=== PATIENT | male | born 1970 | race Caucasian/White ===

== ENCOUNTER 2017-07-11 17:47 | Emergency (ER) | payer SELFPAY ==
[2017-07-11 17:48] VITALS: BP 150/102; PULSE 71; RESP 16; TEMP 36.5; O2SAT 97; BMI 30.8
--- NOTE | 2017-07-11 18:08 | ED.VISSUMM ---
- ER Visit Summary Date of Service: 07/11/17 Chief Complaint: [] Laceration left leg History of Present Illness: The patient is a 47 M [] complaining of laceration to the left tibia after partially falling through his roof. Patient reports the injury occurred yesterday. He is here at the urging of his . 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 He reports cleaning the wound and applying triple antibiotic ointment. The wound is not actively bleeding upon arrival to the room. Patient reports his tetanus status is not up-to-date. Patient denies any significant past medical history. Physical Examination: [] Afebrile, vital signs stable. Elevation of the left lower extremity reveals a 5 cm full-thickness laceration without signs of cellulitis or infection. There is good hemostasis. The wound is gaped open approximately 1-1/2 cm. It appears to be trying to heal by secondary intention. Patient is neurovascularly intact distally. There is no significant bony tenderness on palpation. Test Results: [] None. Emergency Department Course and Treatment: [] Patient had the area cleaned with Shur-Clens and saline with a surgical scrub brush after the area was anesthetized locally with LET. The wound will not be sutured closed as it is over 12 hours old and went through a dirty surface. Patient will be started on Bactrim and Keflex as an outpatient with first doses provided here in the emergency department. Patient was instructed to have his wound evaluated in 72 hours. Treatment Plan: [] Outpatient antibiotic treatment and close PCP follow-up. Disposition: [] Discharge, stable. Impression: [] Tetanus update Laceration wound check This note was generated with [employer] dictation software. It may contain incorrect words, spelling, and punctuation that were not noted in review of the chart prior to signing ED Disposition - Plan for ED Patient: Chief Complaint: Laceration
--- NOTE | 2017-07-11 18:13 | ED.DCSUM_ITS ---
- ER Visit Summary Date of Service: 07/11/17 Chief Complaint: [] Laceration left leg History of Present Illness: The patient is a 47 M [] complaining of laceration to the left tibia after partially falling through his roof. Patient reports the injury occurred yesterday. He is here at the urging of his . 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 He reports cleaning the wound and applying triple antibiotic ointment. The wound is not actively bleeding upon arrival to the room. Patient reports his tetanus status is not up-to-date. Patient denies any significant past medical history. Physical Examination: [] Afebrile, vital signs stable. Elevation of the left lower extremity reveals a 5 cm full-thickness laceration without signs of cellulitis or infection. There is good hemostasis. The wound is gaped open approximately 1-1/2 cm. It appears to be trying to heal by secondary intention. Patient is neurovascularly intact distally. There is no significant bony tenderness on palpation. Test Results: [] None. Emergency Department Course and Treatment: [] Patient had the area cleaned with Shur-Clens and saline with a surgical scrub brush after the area was anesthetized locally with LET. The wound will not be sutured closed as it is over 12 hours old and went through a dirty surface. Patient will be started on Bactrim and Keflex as an outpatient with first doses provided here in the emergency department. Patient was instructed to have his wound evaluated in 72 hours. Treatment Plan: [] Outpatient antibiotic treatment and close PCP follow-up. Disposition: [] Discharge, stable. Impression: [] Tetanus update Laceration wound check This note was generated with [employer] dictation software. It may contain incorrect words, spelling, and punctuation that were not noted in review of the chart prior to signing ED Disposition - Plan for ED Patient: Chief Complaint: Laceration
[2017-07-11] MEDS: Lidocaine/Epi/Tetracaine 50 ML 1 APPLIC TOPICAL (18:14)
[2017-07-11] MEDS: Cephalexin 250 MG Capsule 500 MG PO (18:37)
[2017-07-11] MEDS: Smz/Tmp Ds Tablet 1 TABLET PO (18:37)
[2017-07-11] MEDS: Diphth,Pertuss(Acell),Tet Vac 0.5 ML Vial IM (18:37)
--- NOTE | 2017-07-11 19:16 | ED.DEP ---
ED Disposition - Plan for ED Patient: Disposition: Home or Assisted Living Chief Complaint: Laceration Instructions: ED Laceration Old Not Sutr Prescriptions: Cephalexin [Keflex] 500 mg PO Q8 #12 cap Sulfamethoxazole/Trimethoprim [Bactrim Ds Tablet] 1 ea PO BID #6 tab Referrals: Care Physician,No Primary [Primary Care Provider] -
[2017-07-11] MEDS: BACITRACIN 15 GM Tube 1 APPLIC TOPICAL (19:25)
[2017-07-11 19:26] VITALS: RESP 16
== END 2017-07-11 19:26 | disposition home or self-care (01) ==
PROVIDERS: Emergency Provider Emergency Medicine
DX: S81.812A Laceration without foreign body, left lower leg, initial encounter (principal); W13.2XXA Fall from, out of or through roof, initial encounter; Y93.9 Activity, unspecified; Y92.009 Unspecified place in unspecified non-institutional (private) residence as the place of occurrence of the external cause; Y99.9 Unspecified external cause status; Z23 Encounter for immunization
CPT/HCPCS: 90715; 99284

== ENCOUNTER 2021-06-01 16:02 | Emergency (ER) | payer OTHER, SELFPAY ==
[2021-06-01 16:04] VITALS: BP 138/102; PULSE 111; RESP 16; TEMP 36.5; O2SAT 95; BMI 34.1
--- NOTE | 2021-06-01 16:23 | EKG12_ITS ---
Test Reason : Blood Pressure : / mmHG Vent. Rate : 099 BPM Atrial Rate : 099 BPM P-R Int : 132 ms QRS Dur : 094 ms QT Int : 356 ms P-R-T Axes : 045 033 035 degrees QTc Int : 456 ms Normal sinus rhythm Normal ECG Confirmed by SUKHWINDER LEARY, DAMION ([id number]), video effects editor JOAQUIN IRVING ([id number]) on 06/04/2021 11:29:04 AM Referred By: CATERINA Confirmed By:DAMION PRETTY MD
--- NOTE | 2021-06-01 16:25 | EDS_ITS ---
HPI History of Present Illness Chief Complaint: Other, Pain/Inj Narrative Narrative: 51-year-old male presenting with neck and left arm pain. Patient states this started approximately 1 week ago. He states he initially rolled off the couch and felt that was the cause. He went to urgent care on Wednesday and was prescribed prednisone and muscle relaxer. He states he was unable to tolerate the prednisone and took this for 3 days only. He complains of persistent pain in his neck and left arm. Denies chest pain or shortness of breath. Denies trauma. Prior similar symptoms: No Recent Illness/Hospitalization: No [facility] Medical History (Updated 06/01/21 @ 19:[address] Stephanie Malone MD) Hypertension Home Medications hydrocodone-acetaminophen 1 tab PO Q6H PRN PRN 3 Days #10 tablet 06/01/21 [Rx Last Taken Unknown] lisinopril 10 mg PO DAILY 06/01/21 [History Last Taken Unknown] Allergy/AdvReac Type Severity Reaction Status Date / Time Penicillins [PCN] Allergy Swelling Verified 06/01/21 16:14 prednisone AdvReac Other Verified 06/01/21 16:04 Social History Smoking Status: Never smoker ROS ROS ED Constitutional Constitutional ED: Denies fever(s) Eyes Eyes: Denies change in vision ENT ENT ED: Denies rhinorrhea or sore throat Cardiovascular Cardiovascular: Denies chest pain or palpitations Respiratory/Chest Respiratory/Chest: Denies cough or dyspnea Gastrointestinal Gastrointestinal: Denies abdominal pain, nausea or vomiting Musculoskeletal Musculoskeletal: Reports neck pain and other Details: left arm pain Integumentary Denies rash Neurologic Neurologic: Denies headache(s), paresthesias or weakness EXAM Physical Exam Const Vital Signs: 06/01/21 16:04 06/01/21 16:15 Temperature 97.7 F L Temperature Source Temporal Pulse Rate 111 H Respiratory Rate 16 Respiratory Effort Normal Non-Labored Respiratory Pattern Normal Blood Pressure 138/102 H Blood Pressure Mean 114 Pulse Ox 95 Oxygen Delivery Method Room Air Positive well nourished and well developed General Appearance ED: well developed HEENT Reports normocephalic and head/scalp atraumatic Eyes PERRL and EOMs intact bilaterally Neck supple Neck Narrative: no midline tenderness General: Negative for tenderness Chest Wall inspection of chest normal Resp normal respiratory effort and clear to auscultation bilaterally Cardio regular rate and regular rhythm no CVA tenderness Extremity normal to inspection Extremity Narrative: active full range of motion. No warmth or erythema. Neuro oriented x3 and no sensory deficits noted Sensorium / Orientation: alert Motor Exam: strength 5/5 throughout Psych mental status grossly normal Skin no rashes or lesions noted MDM MDM MDM Narrative Medical decision making narrative: Patient was given Morphine, Zofran IV. Chest x-ray read by myself and radiology shows no acute process. Cervical spine x- ray shows mild degenerative disc disease at C5-6 and C6-7. CBC, chemistries are unremarkable. Troponin is negative. Patient is resting comfortably on reevaluation. He is given a prescription for short course of Alpine. Advised to follow-up with orthopedics. Advised return to ED for worsening complaints. Lab Data Attestation: I reviewed the patient's lab results. Labs: Laboratory Results - last 24 hr 06/01/21 06/01/21 16:40 16:40 WBC 7.6 RBC 5.10 Hgb 15.5 Hct 44.2 MCV 86.7 MCH 30.4 MCHC 35.1 RDW Std Deviation 38.6 RDW Coeff of Vic 12.2 Plt Count 158 MPV 10.1 Immature Gran % (Auto) 1.300 H Neut % (Auto) 63.6 Lymph % (Auto) 25.2 [place] % (Auto) 6.6 Eos % (Auto) 2.8 Baso % (Auto) 0.5 Absolute Neuts (auto) 4.8 Absolute Lymphs (auto) 1.91 Nucleated RBC % 0 Sodium 136 Potassium 4.2 Chloride 103 Carbon Dioxide 20.0 L Anion Gap 13 BUN 18 Creatinine 1.07 Estim Creat Clear Calc 86.23 Est GFR (MDRD) Af Amer 94 Est GFR (MDRD) Non-Af 78 BUN/Creatinine Ratio 16.8 Glucose 225 H Calcium 7.9 L Troponin I High Sens < 3 L Radiography Diagnostic Testing: Clinical Impression(s) from Imaging Studies Chest X-Ray 06/01/21 16:54 IMPRESSION: No radiographic evidence of acute cardiopulmonary disease. at 1905 Reported and signed by: Jcarlos Latif MD Electronically Signed: Jcarlos Latif MD at 19:03 EDT , EKG Initial EKG: Attestation: I personally reviewed and interpreted this EKG as follows: Interpretation: Sinus Rhythm and No Acute Injury Pattern Discharge Plan Triage Chief Complaint: Other, Pain/Inj ED Provider: Stephanie Malone Dx/Rx/DC Orders Clinical Impression: Neck strain Instructions: ED Neck Sprain or Strain Prescriptions: New hydrocodone-acetaminophen 5-325 mg tablet 1 tab PO Q6H PRN PRN (Reason: Pain) 3 Days Qty: 10 RF: 0 No Action lisinopril 10 mg tablet 10 mg PO DAILY RF: 0 Primary Care Provider: Sara Holcomb Referrals: Sara Holcomb MD [Primary Care Provider] - Eusebio Koenig DO [STAFF PHYSICIAN] - Disposition Disposition: Home, Self Care
[2021-06-01] MEDS: Morphine 4 MG/ML Syringe IV (16:39)
[2021-06-01] MEDS: Ondansetron 4 MG/2 ML Vial IV (16:39)
[2021-06-01 16:52] LABS: Absolute Lymphocyte Count 1.91 X10^3/uL (0.83-4.51); Absolute Neutrophil Count 4.8 X10^3/uL (2.0-7.7); Basophil# 0.04 X10^3/uL; Basophil% 0.5 % (0-1); Eosinophil# 0.21 X10^3/uL; Eosinophils% 2.8 % (0-5); Hematocrit 44.2 % (40-54); Hemoglobin 15.5 g/dL (13.0-16.5); Lymphocyte # 1.91 X10^3/ul (0.83-4.51); Lymphocyte % 25.2 % (19-41); Mean Corp Hgb Conc 35.1 g/dL (32-36); Mean Corpuscular Hgb 30.4 pg (27.0-32.0); Mean Corpuscular Volume 86.7 fL (80-94); Mean Platelet Vol. 10.1 fl (6.2-12.0); Monocyte% 6.6 % (0-10); NRBC Flagged by Analyzer 0 % (0-5); Neutrophil # 4.82 X10^3/uL (2.7-7.7); Neutrophil % 63.6 % (47-70); Platelet Count 158 K/mm3 (150-450); RBC Distribution Width CV 12.2 % (11.6-14.6); RBC Distribution Width SD 38.6 fl (35.1-43.9); White Blood Count 7.6 K/mm3 (4.4-11.0)
--- NOTE | 2021-06-01 16:54 | RAD_ITS ---
HISTORY: sob EXAMINATION/TECHNIQUE: XR Chest 1 View: 1 view COMPARISON: None FINDINGS: LINES/DEVICES: None. LUNGS: No consolidation, edema or effusion. No pneumothorax. MEDIASTINUM AND CARDIOVASCULAR STRUCTURES: Cardiac silhouette not enlarged. Central airways and mediastinal contour are unremarkable. BONES AND SOFT TISSUES: No acute bony abnormalities. RAD/Chest 1 View (Portable) IMPRESSION: No radiographic evidence of acute cardiopulmonary disease. at 1905 Reported and signed by: Jcarlos Latif MD Electronically Signed: Jcarlos Latif MD at 19:03 EDT ,
--- NOTE | 2021-06-01 16:54 | RAD_ITS ---
HISTORY: pain EXAMINATION/TECHNIQUE: XR Spine Cervical 2 or 3 Views: 3 views COMPARISON: None FINDINGS: VERTEBRAE: Preserved vertebral body height. No fracture. No spondylolisthesis. DISCS: Mild disc space loss at C5-6 and C6-7. NECK SOFT TISSUES: No prevertebral soft tissue widening. RAD/Cerv Spine 2 or 3 Views IMPRESSION: Mild degenerative disc disease at C5-6 and C6-7. at 1907 Reported and signed by: Jcarlos Latif MD Electronically Signed: Jcarlos Latif MD at 19:05 EDT ,
[2021-06-01 17:17] LABS: Anion Gap 13 (5-15); BUN 18 mg/dL (7-18); BUN/Creat Ratio 16.8 RATIO (10-20); Calcium,Total 7.9 mg/dL (8.5-10.1); Chloride 103 mmol/L (98-107); Creatinine, Serum 1.07 mg/dL (0.70-1.30); EST Glomerular Filtration Rate 78 mL/min (>60); Est Glom Filt Rate - Afr Amer 94 mL/min (>60); Estimated Creatinine Clearance 86.23 ml/min; Glucose 225 mg/dL (74-106); Potassium 4.2 mmol/L (3.5-5.1); Sodium Level 136 mmol/L (136-145); Troponin-I HS < 3 pg/mL (3.0-78.0)
[2021-06-01 19:32] VITALS: BP 131/61; PULSE 67; RESP 18; O2SAT 96
== END 2021-06-01 19:33 | disposition home or self-care (01) ==
PROVIDERS: Emergency Provider Emergency Medicine; PCP Internal Medicine; Visit Provider Emergency Medicine
DX: S16.1XXA Strain of muscle, fascia and tendon at neck level, initial encounter (principal); W08.XXXA Fall from other furniture, initial encounter; M50.322 Other cervical disc degeneration at C5-C6 level; I10 Essential (primary) hypertension; Z79.899 Other long term (current) drug therapy
CPT/HCPCS: 71045; 72040; 80048; 84484; 85025; 93005; 96374; 96375; 99283; J2405